=== PATIENT | female | born 1975 | race African-American/Black ===

== ENCOUNTER → 2020-05-08 | Outpatient (CLI) | payer OTHER ==
[~2020-05-08] MED LIST: ACCUNEB SO1.25 MG/1; CENTRUM SILVER1 EAC2 PO; FISH OIL500 MG PO; METFORMIN PO; PENICILLIN VK500 MG PO
== END ==
LOC: M.RAD 07:00
PROVIDERS: ATTEND Nurse Practitioner Family
DX: Z12.31 Encounter for screening mammogram for malignant neoplasm of breast (principal)

== ENCOUNTER → 2021-06-03 | Outpatient (CLI) | payer OTHER | LOC: M.RAD 12:14 | PROVIDERS: ATTEND Nurse Practitioner Family | DX: Z12.31 Encounter for screening mammogram for malignant neoplasm of breast (principal) ==

== ENCOUNTER 2021-06-12 11:43 | Emergency (ER) | payer OTHER ==
[~2021-06-12] VITALS: Ht 160 cm; Wt 89.8 kg
[2021-06-12] MEDS ORDERED: APAP W/CODEINE1 TA2 PO (15:04)
[2021-06-12] MEDS ORDERED: FLEXERIL PO (15:04)
[2021-06-12] MEDS ORDERED: MEDROLDOSEPACK PO (15:04)
[2021-06-12 15:08] LABS: URINE BILIRUBIN NEGATIVE (Negative); URINE BLOOD TRACE (Negative); URINE CLARITY CLEAR; URINE COLOR YELLOW; URINE GLUCOSE-RANDOM NEGATIVE (Negative); URINE KETONES NEGATIVE (Negative); URINE LEUKOCYTES-REFLEX NEGATIVE (Negative); URINE NITRITE-REFLEX NEGATIVE (Negative); URINE PROTEIN NEGATIVE (Negative); URINE UROBILINOGEN 0.2 E.U./dl (0.2-1.0)
== END 2021-06-12 15:19 | disposition home or self-care (01) ==
LOC: M.ERS 11:43
PROVIDERS: Physician Assistant
DX: M62.830 Muscle spasm of back (principal); E78.00 Pure hypercholesterolemia, unspecified; Z98.51 Tubal ligation status; Z87.42 Personal history of other diseases of the female genital tract; Z79.899 Other long term (current) drug therapy